=== PATIENT | female | born 1955 | race Caucasian/White ===

== ENCOUNTER 2016-07-11 15:06 | Emergency (ER) | payer OTHER ==
[~2016-07-11 15:06] MED LIST: ALBUTEROL; ALBUTEROL0.83 MG/ML IH; ALBUTEROL17 G1 IH; ALBUTEROL17 GM INH; ALLEGRA PO; ALLERGY25 MG; ALPRAZOLAM0.5 MG PO; AMOXICILLIN500 M1 PO; ATIVAN PO; CALCIUM + D 6001 TA1 PO; CALCIUM 600 +1 EACH PO; CALTRATE 600+D PO; CEFTIN PO; CELEBREX PO; COLACE PO; COLACE50 MG PO; CYMBALTA30 MG PO; DOCUSATE SODIU100 MG PO; FLEXERIL PO; FLOMAX0.4 M1 DOB; GUAIFENESIN600 MG PO; IBUPROFEN800 MG PO; LEXAPRO PO; LORTAB 10-5001 EACH PO; MULTI-DAY VITAM1 TAB PO; NICOTINE TRANSD21 MG EXT; PERCOCET 10/3251 TAB PO; PREDNISONE PO; PRILOSEC PO; PRILOSEC20 MG DOB; SPIRIVA18 MCG INH; STOOL SOFTENER100 M1 PO; SYMBICORT INH; TRAMADOL HCL50 M2 PO; TRAZODONE HCL100 MG PO; TRAZODONE PO; VALACYCLOVIR1000 MG PO; VICODIN 5/1 TAB 5/50 PO; VICODIN PO; VITAMIN; VITAMIN C500 M5 PO; ZITHROMAX500 MG PO; ZOFRAN PO; ZYRTEC PO; ZYRTEC10 M2 PO
== END 2016-07-11 15:23 | disposition home or self-care (01) ==
LOC: CFTX 15:06
DX: G89.29 Other chronic pain (principal); M54.5 Low back pain; F32.9 Major depressive disorder, single episode, unspecified; B19.20 Unspecified viral hepatitis C without hepatic coma; F17.210 Nicotine dependence, cigarettes, uncomplicated; Z79.899 Other long term (current) drug therapy
CPT/HCPCS: 96372; 99283; J1885

== ENCOUNTER 2016-07-20 04:16 | Emergency (ER) | payer SELFPAY | END 2016-07-20 04:41 | disposition home or self-care (01) | LOC: CED 04:16 | DX: M54.5 Low back pain (principal); Z90.710 Acquired absence of both cervix and uterus; Z98.890 Other specified postprocedural states | CPT/HCPCS: 96372; 99283; J1885 ==